=== PATIENT | female | born 2000 | race American Indian/Alaskan Native ===

== ENCOUNTER 2020-02-04 09:11 | Emergency (ER) | payer MEDICAID ==
[2020-02-04 09:32] VITALS: BP 100/44
--- NOTE | 2020-02-04 10:16 | Emergency Department Report ---
- General Chief complaint: Neck Pain/Injury Stated complaint: CYST ON NECK Time Seen by Provider: 02/04/20 09:52 Source: patient Mode of arrival: Ambulatory Limitations: No Limitations - History of Present Illness Initial comments: This is a 19-year-old female nontoxic, well nourished in appearance, no acute signs of distress presents to the ED with c/o of left lateral neck area cyst x 1 year. Patient denies any pus or drainage. Denies any pain. Agrees to mobile. Patient denies any fever, chills, nausea, vomiting, chest pain, shortness of breath, headache or stiff neck. Patient denies any allergies or significant past medical history. -: year(s) (1) Severity scale (0 -10): 0 Improves with: none Worsens with: none Associated symptoms: denies other symptoms Treatments Prior to Arrival: none - Related Data Allergies Allergy/AdvReac Type Severity Reaction Status Date / Time No Known Allergies Allergy Unverified 07/25/15 15:55 Abscess Boil HPI - HPI Chief Complaint: Neck Pain/Injury Stated Complaint: CYST ON NECK Time Seen by Provider: 02/04/20 09:52 Allergies/Adverse Reactions: Allergies Allergy/AdvReac Type Severity Reaction Status Date / Time No Known Allergies Allergy Unverified 07/25/15 15:55 ED Review of Systems ROS: Stated complaint: CYST ON NECK Other details as noted in HPI Constitutional: denies: chills, fever Eyes: denies: eye pain, eye discharge, vision change ENT: denies: ear pain, throat pain Respiratory: denies: cough, shortness of breath, wheezing Cardiovascular: denies: chest pain, palpitations Endocrine: no symptoms reported Gastrointestinal: denies: abdominal pain, nausea, diarrhea Genitourinary: denies: urgency, dysuria, discharge Musculoskeletal: denies: back pain, joint swelling, arthralgia Skin: denies: rash, lesions Neurological: denies: headache, weakness, paresthesias Psychiatric: denies: anxiety, depression Hematological/Lymphatic: denies: easy bleeding, easy bruising ED Past Medical Hx - Past Medical History Previous Medical History?: No - Surgical History Past Surgical History?: No - Social History Smoking Status: Never Smoker Substance Use Type: None ED Physical Exam - General Limitations: No Limitations General appearance: alert, in no apparent distress - Head Head exam: Present: atraumatic, normocephalic - Expanded Head Exam Expanded 1 - mobile cyst vs. lipoma. no induraiton. no flutance. nontender. no cellulitis. - Eye Eye exam: Present: normal appearance - Neck Neck exam: Present: normal inspection, full ROM. Absent: tenderness, meningismus, lymphadenopathy - Cardiovascular Cardiovascular Exam: Present: regular rate - Extremities Exam Extremities exam: Present: full ROM - Back Exam Back exam: Present: full ROM - Neurological Exam Neurological exam: Present: alert, oriented X3, normal gait - Psychiatric Psychiatric exam: Present: normal affect, normal mood - Skin Skin exam: Present: warm, dry, intact, normal color. Absent: rash ED Course Vital Signs 02/04/20 09:31 Temperature 97.9 F Pulse Rate 83 Respiratory 15 Rate Blood Pressure 100/44 O2 Sat by Pulse 99 Oximetry - Reevaluation(s) Reevaluation #1: 02/04/20 10:15 Patient is speaking in full sentences with no signs of distress noted. ED Medical Decision Making - Medical Decision Making This is a 19-year-old female that presents with cyst versus lipoma. Patient is stable and was examined by me. Patient presents with a nonmedical emergency. Patient was referred to appropriate follow-up for this condition. Patient was instructed to follow-up with a primary care doctor in 3-5 days or if symptoms worsen and continue return to emergency room as soon as possible. At time of discharge, the patient does not seem toxic or ill in appearance. No acute signs of distress noted. Patient agrees to discharge treatment plan of care. No further questions noted by the patient. Critical care attestation.: If time is entered above; I have spent that time in minutes in the direct care of this critically ill patient, excluding procedure time. ED Disposition Clinical Impression: Cyst of neck Disposition: MED SCREENING EXAM-LEFT Is pt being admited?: No Does the pt Need Aspirin: No Condition: Stable Additional Instructions: Follow-up with a primary care doctor in 3-5 days or if symptoms worsen and continue return to emergency room as soon as possible. Referrals: PRIMARY CARE, [Referring] - 3-5 Days ERNIE WALLACE MD [Staff Physician] - 3-5 Days
== END 2020-02-04 10:47 | disposition left against medical advice (07) ==
LOC: ED 09:11
DX: R22.1 Localized swelling, mass and lump, neck (principal); Z53.21 Procedure and treatment not carried out due to patient leaving prior to being seen by health care provider

== ENCOUNTER 2021-01-16 19:02 | Emergency (ER) | payer MEDICAID | END 2021-01-17 08:00 | LOC: ED 19:02 | DX: R10.9 Unspecified abdominal pain (principal); Z53.21 Procedure and treatment not carried out due to patient leaving prior to being seen by health care provider ==